=== PATIENT | male | born 1995 | race Two or more races ===

== ENCOUNTER 2018-09-10 23:42 | Emergency (ER) | payer OTHER ==
[~2018-09-10] VITALS: Ht 182.9 cm; Wt 79.4 kg
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
--- NOTE | 2018-09-10 23:59 | NUR ---
XRAY IN PROGRESS AT THE BEDSIDE.
[2018-09-11] MEDS ORDERED: VANCOMYCIN 1 GM in IV D5W 250 ML IV ONE ×2
[2018-09-11] MEDS ORDERED: IV NS 0.9% 1,000 ML BAG IV ONE
[2018-09-11] MEDS ORDERED: PIPERACILLIN /TAZOBACTAM 3.375 G in IV D5W 50 ML IV ONE ×2
--- NOTE | 2018-09-11 00:04 | NUR ---
IV START IN PROGRESS. POTTERY DECORATION DESIGNER IS AT THE BEDSIDE FOR LAB COLLECTION.
[2018-09-11] MEDS ORDERED: PIPERACILLIN /TAZOBACTAM 3.375 G VIAL IV ONE (00:08)
[2018-09-11] MEDS ORDERED: VANCOMYCIN 1 GM VIAL ONE (00:08)
[2018-09-11 00:18] LABS: BASOPHILS % (AUTO) 0.2 % (0.0-2.0); EOSINOPHILS % (AUTO) 0.3 % (0.0-6.0); HEMATOCRIT 39 % (39-51); HEMOGLOBIN 12.9 g/dL (13.5-17.5); LYMPHOCYTES # (AUTO) 1.3 /CMM (0.8-4.8); LYMPHOCYTES % (AUTO) 11.5 % (20.0-44.0); MEAN CORPUSCULAR HGB CONC 33 g/dl (31.0-36.0); MEAN CORPUSCULAR VOLUME 85 fL (80-96); MONOCYTES # (AUTO) 0.8 /CMM (0.1-1.30); NEUTROPHILS # (AUTO) 9.5 /CMM (1.8-8.9); PLATELET COUNT (AUTO) 242 /CMM (150-450); RED BLOOD CELL COUNT(AUTO) 4.63 MIL/uL (4.5-6.0); WHITE BLOOD COUNT (AUTO) 11.7 K/uL (4.3-11.0)
[2018-09-11 00:20] LABS: APPEARANCE,URINE Clear (CLEAR); BILIRUBIN,URINE SMALL (NEGATIVE); BLOOD, URINE Negative Ery/uL (NEGATIVE); COLOR,URINE Yellow (YELLOW); KETONES,URINE Negative (NEGATIVE); LEUKOCYTE ESTERASE ,URINE Negative (NEGATIVE); NITRITE, URINE Negative (NEGATIVE); PROTEIN,URINE 30 mg/dl (NEGATIVE); UGLUCOSE Negative (NEGATIVE)
[2018-09-11 00:32] LABS: CALCIUM, SERUM 9.1 mg/dL (8.5-10.1); CARBON DIOXIDE 27 mmol/L (21-32); CHLORIDE 99 mmol/L (98-107); CREATININE 0.8 mg/dL (0.6-1.3); GLUCOSE 121 mg/dL (74-106); POTASSIUM 3.7 mmol/L (3.5-5.1); SODIUM SERUM 134 mmol/L (136-145); UREA NITROGEN, BLOOD 14 mg/dL (7-18)
--- NOTE | 2018-09-11 00:35 | NUR ---
CALLED MARY BETH RE: XRAYS. THEY ARE BEING READ NOW.
--- NOTE | 2018-09-11 00:42 | NUR ---
PT REC'D AN EGG SANDWICH, PUDDING, JELLO, AND SEVERAL JUICES. PT IS TOLERATING PO WELL.
[2018-09-11 00:43] VITALS: BP 141/70
[2018-09-11 00:50] LABS: ALANINE AMINOTRANSFERASE 35 U/L (12-78); ALBUMIN 3.4 g/dL (3.4-5.0); ALKALINE PHOSPHATASE 82 U/L (46-116); ASPARTATE AMINOTRANSFERASE 28 U/L (15-37); BILIRUBIN,DIRECT 0.2 mg/dL (0.0-0.2); BILIRUBIN,TOTAL 0.7 mg/dL (0.2-1.0); TOTAL PROTEIN, SERUM 7.6 g/dL (6.4-8.2)
[2018-09-11 00:52] LABS: BACTERIA,URINE Rare /HPF (None Seen); MUCUS,URINE Few /LPF (None Seen); RBC,URINE 0-2 /HPF (0-2); SQUAMOUS EPITHELIAL CELL,UR Rare /HPF (None Seen); WBC,URINE 0-2 /HPF (0-3)
[2018-09-11] MEDS ORDERED: TDAP [DIPH/PERTUSSIS/TET] 0.5 ML VIAL IM ONE ×2 (01:00→01:14)
[2018-09-11] MEDS ORDERED: IV NS 0.9% 1,000 ML IV PRN (01:01)
--- NOTE | 2018-09-11 01:05 | NUR ---
REPORT GIVEN TO BUCKY RENNER
[2018-09-11] MEDS ORDERED: CEFTRIAXONE 1 G in IV D5W 50 ML IV SCH (01:30)
[2018-09-11] MEDS ORDERED: HYDROCODONE/APAP 5/325MG 1 EACH TABLET PO PRN (01:30)
[2018-09-11] MEDS ORDERED: ZOLPIDEM TARTRATE 5 MG TABLET PO PRN (01:30)
[2018-09-11] MEDS ORDERED: MORPHINE SULFATE INJ 2 MG/ML DISP.SYRIN IV PRN (01:30)
[2018-09-11] MEDS ORDERED: MAGNESIUM HYDROXIDE 30 ML UDC PO PRN (01:30)
[2018-09-11] MEDS ORDERED: ACETAMINOPHEN 325 MG TABLET PO PRN (01:30)
[2018-09-11] MEDS ORDERED: ONDANSETRON HCL/PF 4 MG/2 ML VIAL IVP PRN (01:30)
[2018-09-11] MEDS ORDERED: VANCOMYCIN 1 GM in IV D5W 250 ML IV SCH (01:30)
[2018-09-11] MEDS ORDERED: MAG HYDROX/AL HYDROX/SIMETH 30 ML UDC PO PRN (01:30)
[2018-09-11] MEDS ORDERED: Z GUARD REMEDY 2 OZ OINT TP PRN (01:30)
--- NOTE | 2018-09-11 01:30 | NUR ---
PT PULLED OUT HIS IV AND STATED THAT HE WANTED TO LEAVE AMA. Patient does not wish to proceed with medical care recommended by Dr. GRADY. Patient given information related to possible complications, up to and including , which could occur as a result of leaving the hospital at this time. Patient verbalizes understanding of risks involved due to leaving against medical advice. Patient has signed AMA form.
--- NOTE | 2018-09-11 01:34 | NUR ---
PT REFUSED TO SIGN HOMELESS WAIVER. PT REFUSED ANY HOMELESS RESOURCES. HE STATED THAT HE JUST WANTED TO LEAVE.
== END 2018-09-11 01:34 | disposition left against medical advice (07) ==
LOC: ER 23:45
DX: L03.114 Cellulitis of left upper limb (principal); S50.812A Abrasion of left forearm, initial encounter; F15.90 Other stimulant use, unspecified, uncomplicated; W26.8XXA Contact with other sharp object(s), not elsewhere classified, initial encounter; Y93.89 Activity, other specified; Y92.89 Other specified places as the place of occurrence of the external cause; Y99.8 Other external cause status
CPT/HCPCS: 36415; 71045; 73090; 80048; 80076; 80305; 81001; 83605; 84484; 85025; 85730; 87040 ×2; 87070; 87077; 87081; 90471; 90715; 96365; 96375; 99284; A4606; J2543; J3370; J7030; 81000-TC; J0696; J7060

== ENCOUNTER 2019-08-01 04:02 | Emergency (ER) | payer OTHER ==
[~2019-08-01] VITALS: Ht 182.9 cm; Wt 79.4 kg
[2019-08-01 04:02] VITALS: BP 159/88
== END 2019-08-01 05:55 | disposition home or self-care (01) ==
LOC: ER 04:08
DX: Z53.21 Procedure and treatment not carried out due to patient leaving prior to being seen by health care provider (principal); F41.9 Anxiety disorder, unspecified; F15.90 Other stimulant use, unspecified, uncomplicated

== ENCOUNTER 2021-01-07 20:16 | Emergency (ER) | payer OTHER ==
[~2021-01-07] VITALS: Ht 182.9 cm; Wt 79.4 kg
[2021-01-07 20:16] VITALS: BP 135/56
[2021-01-07] MEDS ORDERED: OLANZAPINE 5 MG TABLET ONE (20:40)
[2021-01-07] MEDS ORDERED: OLANZAPINE 5 MG TABLET PO ONE (21:00)
--- NOTE | 2021-01-07 21:00 | NUR ---
PT REFUSING EKG. ER AWARE.
== END 2021-01-07 21:41 | disposition home or self-care (01) ==
LOC: ER 20:17
DX: F19.10 Other psychoactive substance abuse, uncomplicated (principal); F41.9 Anxiety disorder, unspecified

== ENCOUNTER 2021-02-08 10:04 | Emergency (ER) | payer OTHER ==
[~2021-02-08] VITALS: Ht 182.9 cm; Wt 90.7 kg
[2021-02-08 10:14] VITALS: BP 145/81
--- NOTE | 2021-02-08 10:18 | NUR ---
REQUESTING DRESSING CHANGE TO [facility]. RATES PAIN 2/10. WILL CONTINUE TO MONITOR THE PATIENT.
--- NOTE | 2021-02-08 11:01 | NUR ---
Patient discharged to home in stable condition. Written and verbal after care instructions given. Patient verbalizes understanding of instruction.
== END 2021-02-08 11:01 | disposition home or self-care (01) ==
LOC: ER 10:15
DX: Z48.01 Encounter for change or removal of surgical wound dressing (principal)

== ENCOUNTER 2021-04-05 03:47 | Emergency (ER) | payer OTHER ==
[~2021-04-05] VITALS: Ht 172.7 cm; Wt 75.7 kg
[2021-04-05 03:50] VITALS: BP 132/82
== END 2021-04-05 04:51 | disposition home or self-care (01) ==
LOC: ER 04:43
DX: Z00.8 Encounter for other general examination (principal); Z59.00 Homelessness unspecified

== ENCOUNTER 2021-09-13 03:51 | Emergency (ER) | payer OTHER ==
[~2021-09-13] VITALS: Ht 182.9 cm; Wt 81.6 kg
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
--- NOTE | 2021-09-13 04:20 | NUR ---
XRAY AT BEDSIDE
[2021-09-13] MEDS ORDERED: HYDR-3972 PO (04:58)
[2021-09-13] MEDS ORDERED: HYDROCODONE/APAP 5/325MG TABLET PO ONE (05:00)
[2021-09-13] MEDS ORDERED: HYDROCODONE/APAP 5/325MG TABLET ONE (05:04)
--- NOTE | 2021-09-13 05:09 | NUR ---
Patient discharged to home in stable condition. Written and verbal after care instructions given. Patient verbalizes understanding of instruction. splint applied to left arm.
[2021-09-13 05:10] VITALS: BP 128/70
== END 2021-09-13 05:09 | disposition home or self-care (01) ==
LOC: ER 03:59
DX: S52.502A Unspecified fracture of the lower end of left radius, initial encounter for closed fracture (principal); Z59.00 Homelessness unspecified; V00.131A Fall from skateboard, initial encounter; Y93.51 Activity, roller skating (inline) and skateboarding; Y92.331 Roller skating rink as the place of occurrence of the external cause; Y99.8 Other external cause status
CPT/HCPCS: 73090-TC

== ENCOUNTER 2021-12-04 18:37 | Emergency (ER) | payer OTHER ==
[~2021-12-04] VITALS: Ht 182.9 cm; Wt 59.9 kg
[~2021-12-04 18:37] MED LIST: HYDR-3972 PO
--- NOTE | 2021-12-04 18:45 | NUR ---
BIBS FOR TACHYCARDIA 115BEAT/MIN AND C/O LEFT CALF PAIN 5/10 AFTER USING A SCOOTER. USED METH TODAY AM. PT ATTACHED TO MONITOR. DR KAMARA AT BEDSIDE FOR EVAL.
--- NOTE | 2021-12-04 19:10 | NUR ---
URINE COLLECTED AND SENT TO THE LAB
[2021-12-04] MEDS ORDERED: LORAZEPAM 1 MG TABLET ONE (19:47)
[2021-12-04] MEDS ORDERED: diphenhydrAMINE HCL 50 MG CAPSULE ONE (19:47)
--- NOTE | 2021-12-04 19:49 | NUR ---
EMPLOYEE DEVELOPMENT MANAGER AT PT'S BEDSIDE
[2021-12-04] MEDS: IV NS 0.9% 1,000 ML BAG IV ONE (19:50)
[2021-12-04 19:52] LABS: BILIRUBIN,URINE NEGATIVE (NEGATIVE); COLOR,URINE YELLOW (YELLOW); LEUKOCYTE ESTERASE ,URINE NEGATIVE (NEGATIVE); NITRITE, URINE NEGATIVE (NEGATIVE); PROTEIN,URINE NEGATIVE (NEGATIVE); UGLUCOSE NEGATIVE (NEGATIVE); UROBILINOGEN,URINE 0.2 EU/dL (0.2)
[2021-12-04] MEDS: LORAZEPAM 1 MG TABLET PO ONE (19:52)
[2021-12-04] MEDS: diphenhydrAMINE HCL 50 MG CAPSULE PO ONE (19:52)
[2021-12-04 20:02] LABS: BASOPHILS % (AUTO) 0.4 % (0.0-2.0); EOSINOPHILS % (AUTO) 0.6 % (0.0-6.0); HEMATOCRIT 42 % (39-51); LYMPHOCYTES # (AUTO) 1.9 K/uL (0.8-4.8); LYMPHOCYTES % (AUTO) 35.4 % (20.0-44.0); MEAN CORPUSCULAR HGB CONC 33 g/dl (31.0-36.0); MEAN CORPUSCULAR VOLUME 84 fL (80-96); MONOCYTES # (AUTO) 0.4 K/uL (0.1-1.30); MONOCYTES % (AUTO) 7.6 % (2.0-12.0); PLATELET COUNT (AUTO) 229 K/uL (150-450); RED BLOOD CELL COUNT(AUTO) 4.98 MIL/uL (4.5-6.0); WHITE BLOOD COUNT (AUTO) 5.5 K/uL (4.3-11.0)
[2021-12-04 20:28] LABS: BACTERIA,URINE Rare /HPF (None Seen); RBC,URINE 0-2 /HPF (0-2); SQUAMOUS EPITHELIAL CELL,UR Rare /HPF (None Seen); WBC,URINE 0-2 /HPF (0-3)
[2021-12-04 21:15] LABS: ALBUMIN 4.4 g/dL (3.4-5.0); BILIRUBIN,DIRECT 0.1 mg/dL (0.0-0.2); BILIRUBIN,TOTAL 0.6 mg/dL (0.2-1.0); TOTAL PROTEIN, SERUM 8.3 g/dL (6.4-8.2)
[2021-12-04 21:17] LABS: CALCIUM, SERUM 9.6 mg/dL (8.5-10.1); CARBON DIOXIDE 28 mmol/L (21-32); CHLORIDE 102 mmol/L (98-107); CREATININE 0.9 mg/dL (0.6-1.3); GLUCOSE 95 mg/dL (74-106); POTASSIUM 4.1 mmol/L (3.5-5.1); SODIUM SERUM 141 mmol/L (136-145); UREA NITROGEN, BLOOD 27 mg/dL (7-18)
--- NOTE | 2021-12-04 22:03 | NUR ---
2ND TROP SENT
--- NOTE | 2021-12-05 05:40 | NUR ---
Patient discharged to home in stable condition. Written and verbal after care instructions given. Patient verbalizes understanding of instruction. IV removed. Catheter intact and site benign. Pressure and 4x4 applied to site. No bleeding noted.
[2021-12-05 05:41] VITALS: BP 129/60
== END 2021-12-05 06:09 | disposition home or self-care (01) ==
LOC: ER 18:40
DX: F24 Shared psychotic disorder (principal); E86.0 Dehydration; R79.89 Other specified abnormal findings of blood chemistry; I45.10 Unspecified right bundle-branch block; I44.5 Left posterior fascicular block; Z59.00 Homelessness unspecified; Z79.899 Other long term (current) drug therapy
CPT/HCPCS: 36415; 71045; 80048; 80076; 81001; 82550; 84484 ×2; 85025; 93005 ×2; 96360; 99285; J7030; Q0163

== ENCOUNTER 2021-12-14 19:28 | Emergency (ER) | payer OTHER ==
[~2021-12-14] VITALS: Ht 167.6 cm; Wt 72.6 kg
[2021-12-14 19:28] VITALS: BP 152/69
--- NOTE | 2021-12-14 20:00 | NUR ---
CALLED TO ROOM, NO RESPONSE.
--- NOTE | 2021-12-14 20:12 | NUR ---
CALLED TO ROOM, NO RESPONSE.
--- NOTE | 2021-12-14 20:20 | NUR ---
CALLED TO ROOM, NO RESPONSE.
== END 2021-12-15 01:43 | disposition left against medical advice (07) ==
LOC: ER 19:34
DX: Z53.21 Procedure and treatment not carried out due to patient leaving prior to being seen by health care provider (principal)

== ENCOUNTER 2021-12-17 08:03 | Emergency (ER) | payer OTHER ==
[~2021-12-17] VITALS: Ht 182.9 cm; Wt 77.1 kg
--- NOTE | 2021-12-17 08:12 | NUR ---
BIB RA 839 FROM A CLINIC,C/O ANXIETY AFTER USING METH 4 HRS AGO. PT ATTACHED TO MONITOR, NO RESP DISTRESS NOTED.
[2021-12-17] MEDS ORDERED: LORAZEPAM 1 MG TABLET PO ONE (08:30)
[2021-12-17] MEDS ORDERED: LORAZEPAM 1 MG TABLET ONE (08:39)
[2021-12-17 08:42] LABS: BILIRUBIN,URINE NEGATIVE (NEGATIVE); COLOR,URINE YELLOW (YELLOW); LEUKOCYTE ESTERASE ,URINE NEGATIVE (NEGATIVE); NITRITE, URINE NEGATIVE (NEGATIVE); PROTEIN,URINE NEGATIVE (NEGATIVE); UGLUCOSE NEGATIVE (NEGATIVE); UROBILINOGEN,URINE 0.2 EU/dL (0.2)
[2021-12-17 08:45] LABS: BASOPHILS % (AUTO) 0.3 % (0.0-2.0); EOSINOPHILS % (AUTO) 0.2 % (0.0-6.0); HEMATOCRIT 42 % (39-51); HEMOGLOBIN 13.8 g/dL (13.5-17.5); LYMPHOCYTES # (AUTO) 1.6 K/uL (0.8-4.8); LYMPHOCYTES % (AUTO) 22.4 % (20.0-44.0); MEAN CORPUSCULAR HGB CONC 33 g/dl (31.0-36.0); MEAN CORPUSCULAR VOLUME 85 fL (80-96); MONOCYTES # (AUTO) 0.4 K/uL (0.1-1.30); MONOCYTES % (AUTO) 6.3 % (2.0-12.0); NEUTROPHILS % (AUTO) 70.8 % (43.0-81.0); PLATELET COUNT (AUTO) 218 K/uL (150-450); RED BLOOD CELL COUNT(AUTO) 4.93 MIL/uL (4.5-6.0)
[2021-12-17 09:27] LABS: CALCIUM, SERUM 9.6 mg/dL (8.5-10.1); CARBON DIOXIDE 27 mmol/L (21-32); CHLORIDE 104 mmol/L (98-107); CREATININE 0.9 mg/dL (0.6-1.3); GLUCOSE 103 mg/dL (74-106); POTASSIUM 3.7 mmol/L (3.5-5.1); SODIUM SERUM 141 mmol/L (136-145); UREA NITROGEN, BLOOD 22 mg/dL (7-18)
[2021-12-17] MEDS ORDERED: LORAZEPAM INJ 2 MG/ML VIAL ONE (09:57)
[2021-12-17] MEDS ORDERED: LORAZEPAM INJ 2 MG/ML VIAL IM ONE (10:00)
[2021-12-17 10:07] LABS: ALANINE AMINOTRANSFERASE 28 U/L (12-78); ALBUMIN 4.4 g/dL (3.4-5.0); ALKALINE PHOSPHATASE 89 U/L (46-116); ASPARTATE AMINOTRANSFERASE 24 U/L (15-37); BILIRUBIN,DIRECT 0.1 mg/dL (0.0-0.2); BILIRUBIN,TOTAL 0.3 mg/dL (0.2-1.0); TOTAL PROTEIN, SERUM 8.2 g/dL (6.4-8.2)
[2021-12-17 10:10] LABS: ACETAMINOPHEN < 10 ug/ml (10-30); ALCOHOL, BLOOD < 3 mg/dL (0-0)
[2021-12-17 10:48] VITALS: BP 126/73
--- NOTE | 2021-12-17 14:09 | NUR ---
"SS Note: Pt. Is a 26-year-old male who demonstrates adequate insight to the reason for hospitalization. Per EMR, pt. presents to the ER with altered mental status and was using methamphetamine. Pt. was oriented x3, alert, and cooperative. During interview, pt. was capable of following directions and appeared unkempt. Pt.s speech was at a normal rate and pt.s mood was elevated. Pt. reported no hx of mental health, denies suicidal ideation and homicidal ideation. Pt. denies auditory hallucinations, visual hallucinations, paranoia, or delusions. SW explored pt.s living situation. Per pt., he is homeless. Pt. stated that he has been doing Methamphetamine for years. He had recently injected too much and came to the hospital. Per pt., he has been to rehab before ([facility]) in [place] a couple years ago. Pt. stated that it did not help. SW offered rehab resources; pt. accepted. Pt. stated that he wants to go to a fdc. SW provided pt. with information and directions to [place] of the [facility] ([address] [place] [address]) for an intake. Pt. requested a TAP card, SW provided pt. with one. Pt. was able to sign homeless waiver, and its placed in chart. Resources Provided: Year-round shelters: [place] [facility] [address] [place], [place] [id number] ; [facility] [place] [address] [place] [address]; [facility] Ahsjveb5718 [facility] [address] Winter Shelters: Drea Wong Provider: [facility] [place] Address: [address] [facility] [place], [address] # of Beds: 47 Population Served: [facility] [place] [facility] 6 | [facility] Maddi Perrin Judith Provider: [facility] Address: [address], [address] # of Beds: 66 Population Served: Hanane Wong Provider: First to Serve Address: [address] [facility], [address] # of Beds: 56 Population Served: [place] Marlo [place] Provider: /[facility] Address: [address] [facility], [address] # of Beds: 49 Population Served: [facility] SPA 8 | [place] Ginger Blue Provider: First to Serve Address: [address], [address] # of Beds: 37 Population Served: Coed Hygiene: [place] [facility]: [address] [place] ; [place] [facility] [address] [facility] ; [facility] [address] [facility] [place] . Food Resources: [place] [facility] at [facility]- [address] [facility]; Meet Each Need with Dignity ([facility]) [address] [facility] [place]; [facility] [address] [facility]; [facility] [address] [facility]. Mental Health resources provided: [facility] [address] [place], [place] [phone] ; [facility] [place] [address] [facility] [address], [place], [place] [phone] ; Portia Rojas [facility] [address] [place] [address] ; [facility] [address] [place], [place] [phone] Healthcare Clinics: [facility] [address] [facility], [address] [place]. [place] ; [facility] [address] [place] [address]; [facility] [address] [facility] [place] [phone]) [phone] Counseling--Outpatient [facility] [address], [address] [place], [place] [address] (Specializes in in-depth psychotherapy for emotional distress: anxiety, depression, interpersonal conflicts, life transitions, childhood abuse) [facility] [address] [place] [address] (Assist with solving problem marital difficulties, separation & divorce, aging parents, & grief, chronic & terminal illness) [facility] [address] [place] [address] (Deal with loss & grief, anxiety, marital difficulties) Homebound/Mental Health Services [address] [facility] [address] [place] [address] (Provide in-home mental services to people who are incapable of leaving their homes) Organization for Needs of the Elderly Senior Service/Resource Center [address] [place] [address] [facility] [address] [place] [address] PSYCHIATRIC OUTPATIENT SERVICES [facility] Partial Hospitalization and Intensive Outpatient Program (Managed Care and [place] Only)[address] [facility] [phone] [facility] Partial Hospitalization and Outpatient [id number] [facility]. [address] [place], [place] [phone] [facility] [place] [id number] [facility] [address] [place], [place] [phone] [facility] Partial Hospitalization and Outpatient [id number] [place], [phone] Substance Abuse resources provided included: [facility] Substance Abuse Self-Helpline ([facility]) ; CRI [facility]LP [address] [facility]. [place] [address] ; [facility] [address] [facility] [address] ; [facility] Rehabilitation Program [address] [facility] [place] [address] ; [facility] [address] [facility] [phone] ; [facility] [address] Toby [address] [facility] [address] ; [facility] Emergency Department [address] [facility]. [facility] [phone] ; [facility] Substance Abuse Helpline([facility] ; [facility] Family Counseling ; [facility] [place]; [facility]; C[facility]Help [place]; [facility] Toby Torres; [facility] [place]; [place]; [facility] Circle; [facility], [facility]. [place]; Alcoholics Anonymous -SFV; Quynh ; Marijuana Anonymous -SFV; Narcotics Anonymous www.na.org;"
== END 2021-12-17 10:48 | disposition home or self-care (01) ==
LOC: ER 08:03
DX: F15.959 Other stimulant use, unspecified with stimulant-induced psychotic disorder, unspecified (principal); Z60.2 Problems related to living alone; Z79.899 Other long term (current) drug therapy
CPT/HCPCS: 99284; 96372; 71045; 85025; 80048; 80076; 81003; 36415; 84484; 80143; 80320; 80307; J2060; G0480

== ENCOUNTER 2021-12-24 03:33 | Emergency (ER) | payer OTHER ==
[~2021-12-24] VITALS: Ht 170.2 cm; Wt 74.8 kg
[2021-12-24 03:48] VITALS: BP 133/72
[2021-12-24] MEDS ORDERED: MAGNESIUM CITRATE 296 ML BOTTLE PO ONE (04:00)
[2021-12-24] MEDS ORDERED: LORAZEPAM 1 MG TABLET PO ONE (04:00)
[2021-12-24] MEDS ORDERED: POLY17PO4 PO (04:03)
[2021-12-24] MEDS ORDERED: DOCU-141 PO (04:03)
[2021-12-24] MEDS ORDERED: MAGNESIUM CITRATE 296 ML BOTTLE ONE (04:05)
[2021-12-24] MEDS ORDERED: LORAZEPAM 1 MG TABLET ONE (04:05)
== END 2021-12-24 04:18 | disposition home or self-care (01) ==
LOC: ER 03:35
DX: K59.00 Constipation, unspecified (principal); Z93.0 Tracheostomy status; Z60.2 Problems related to living alone; Z79.899 Other long term (current) drug therapy

== ENCOUNTER 2022-01-18 18:09 | Emergency (ER) | payer OTHER ==
[~2022-01-18] VITALS: Ht 170.2 cm; Wt 74.8 kg
[~2022-01-18 18:09] MED LIST changes: +DOCU-141 PO; +POLY17PO4 PO
--- NOTE | 2022-01-18 18:42 | NUR ---
pt [id number] from a clinic c/o chest pain, palpitaion s/p taking methampetamine. pt is tachycardic airplane captain. anxious, placed on monitor. awaiting md galloway.
--- NOTE | 2022-01-18 18:49 | NUR ---
benja carreon at bedside for eval.
[2022-01-18] MEDS ORDERED: OLANZAPINE 5 MG TABLET ONE (18:54)
[2022-01-18] MEDS ORDERED: ASPIRIN 81 MG TAB.CHEW ONE (18:54)
[2022-01-18] MEDS ORDERED: OLANZAPINE 5 MG TABLET PO ONE (19:00)
[2022-01-18] MEDS ORDERED: ASPIRIN 81 MG TAB.CHEW PO ONE (19:00)
[2022-01-18] MEDS ORDERED: IV NS 0.9% 1,000 ML BAG IV ONE (19:00)
[2022-01-18] MEDS ORDERED: LORAZEPAM INJ 2 MG/ML VIAL ONE (19:18)
[2022-01-18] MEDS ORDERED: ZIPRASIDONE 20 MG CAPSULE PO STA (19:24)
[2022-01-18] MEDS ORDERED: LORAZEPAM INJ 2 MG/ML VIAL IV ONE (19:30)
--- NOTE | 2022-01-18 19:32 | NUR ---
RECEIVED REPORT FROM TATE LAWLER FOR MILA
[2022-01-18] MEDS ORDERED: ZIPRASIDONE MESYLATE 20 MG/VIAL VIAL IM ONE ×2 (19:38→20:00)
[2022-01-18] MEDS ORDERED: WATER FOR INJECTION,STERILE 10 ML ONE (19:40)
--- NOTE | 2022-01-18 19:41 | NUR ---
PT IS RESTING COMFORTABLY IN BED, PT IS ALERT AND ORIENTED. DENIES ANY PAIN AT THIS TIME. WILL CONTINUE TO MONITOR.
[2022-01-18 19:50] LABS: BASOPHILS % (AUTO) 0.1 % (0.0-2.0); HEMATOCRIT 42 % (39-51); HEMOGLOBIN 14.1 g/dL (13.5-17.5); LYMPHOCYTES # (AUTO) 1.2 K/uL (0.8-4.8); LYMPHOCYTES % (AUTO) 15.5 % (20.0-44.0); MEAN CORPUSCULAR HGB CONC 33 g/dl (31.0-36.0); MEAN CORPUSCULAR VOLUME 84 fL (80-96); MONOCYTES # (AUTO) 0.4 K/uL (0.1-1.30); MONOCYTES % (AUTO) 5.7 % (2.0-12.0); NEUTROPHILS # (AUTO) 5.9 K/uL (1.8-8.9); NEUTROPHILS % (AUTO) 78.7 % (43.0-81.0); PLATELET COUNT (AUTO) 208 K/uL (150-450); WHITE BLOOD COUNT (AUTO) 7.4 K/uL (4.3-11.0)
--- NOTE | 2022-01-18 20:15 | NUR ---
IV removed. Catheter intact and site benign. Pressure and 4x4 applied to site. No bleeding noted. Pt ambulatory with a steady gait
--- NOTE | 2022-01-18 20:19 | NUR ---
Patient does not wish to proceed with medical care recommended by Gemma Everett PA. Patient given information related to possible complications, up to and including , which could occur as a result of leaving the hospital at this time. Patient verbalizes understanding of risks involved due to leaving against medical advice. Patient has signed AMA form.
[2022-01-18 20:23] VITALS: BP 169/103
[2022-01-18 20:29] LABS: CALCIUM, SERUM 9.4 mg/dL (8.5-10.1); CARBON DIOXIDE 26 mmol/L (21-32); CHLORIDE 103 mmol/L (98-107); GLUCOSE 122 mg/dL (74-106); POTASSIUM 4.5 mmol/L (3.5-5.1); SODIUM SERUM 141 mmol/L (136-145); UREA NITROGEN, BLOOD 19 mg/dL (7-18)
== END 2022-01-18 20:23 | disposition left against medical advice (07) ==
LOC: ER 18:11
DX: R07.89 Other chest pain (principal); F15.90 Other stimulant use, unspecified, uncomplicated; F24 Shared psychotic disorder; I44.5 Left posterior fascicular block; I45.10 Unspecified right bundle-branch block; F17.200 Nicotine dependence, unspecified, uncomplicated; Z59.00 Homelessness unspecified; Z98.890 Other specified postprocedural states; Z60.2 Problems related to living alone; Z79.899 Other long term (current) drug therapy
CPT/HCPCS: 99285; 96374; 71045; 96361; 99406; 93005; 85025; 80048; 36415; 84484; 96372; J2060; J7030; J3486

== ENCOUNTER 2022-01-19 02:39 | Emergency (ER) | payer OTHER ==
[~2022-01-19] VITALS: Ht 182.9 cm; Wt 72.6 kg
[2022-01-19 03:21] VITALS: BP 141/90
--- NOTE | 2022-01-19 03:29 | NUR ---
Patient discharged to home in stable condition. Written and verbal after care instructions given. Patient verbalizes understanding of instruction.
== END 2022-01-19 03:29 | disposition home or self-care (01) ==
LOC: ER 02:41
DX: F15.10 Other stimulant abuse, uncomplicated (principal); Z76.5 Malingerer [conscious simulation]; Z59.00 Homelessness unspecified; F17.200 Nicotine dependence, unspecified, uncomplicated; Z98.890 Other specified postprocedural states; Z60.2 Problems related to living alone; Z79.899 Other long term (current) drug therapy

== ENCOUNTER 2022-02-01 04:06 | Emergency (ER) | payer OTHER ==
[~2022-02-01] VITALS: Ht 177.8 cm; Wt 59.0 kg
--- NOTE | 2022-02-01 04:20 | NUR ---
OTTONIEL 37 REQUESTING FOR VOLUNTARY PSYCH ADMIT. S/I WITH NO PLAN. PT A/OX3. TOLERATING R/A WELL WITH NO SOB. PT CHANGED IN GOWN, BELONGINGS COLLECTED AND PLACED IN LOCKER. SECURITY AT PT'S BEDSIDE FOR WANDING. SAFETY MEASURES IN PLACE. Addendum: 02/01/22 at 0444 by RADHA OTTONIEL 39 FROM THE [facility] REQUESTING FOR VOLUNTARY PSYCH ADMIT. S/I WITH NO PLAN. PT A/OX3. TOLERATING R/A WELL WITH NO SOB. PT CHANGED IN GOWN, BELONGINGS COLLECTED AND PLACED IN LOCKER. SECURITY AT PT'S BEDSIDE FOR WANDING. SAFETY MEASURES IN PLACE.
--- NOTE | 2022-02-01 04:29 | NUR ---
URINE COLLECTED AND SENT TO LAB
--- NOTE | 2022-02-01 04:29 | NUR ---
COVID ANTIGEN SWAB COLLECTED AND SENT TO LAB
--- NOTE | 2022-02-01 04:31 | NUR ---
DIRECTOR OF ONLINE MERCHANDISING AT PT'S BEDSIDE
[2022-02-01 04:49] LABS: BASOPHILS % (AUTO) 0.3 % (0.0-2.0); EOSINOPHILS % (AUTO) 0.1 % (0.0-6.0); HEMATOCRIT 43 % (39-51); HEMOGLOBIN 14.2 g/dL (13.5-17.5); LYMPHOCYTES # (AUTO) 1.8 K/uL (0.8-4.8); LYMPHOCYTES % (AUTO) 25.7 % (20.0-44.0); MEAN CORPUSCULAR HGB CONC 33 g/dl (31.0-36.0); MEAN CORPUSCULAR VOLUME 84 fL (80-96); MONOCYTES # (AUTO) 0.5 K/uL (0.1-1.30); MONOCYTES % (AUTO) 7.1 % (2.0-12.0); NEUTROPHILS # (AUTO) 4.6 K/uL (1.8-8.9); NEUTROPHILS % (AUTO) 66.8 % (43.0-81.0); PLATELET COUNT (AUTO) 224 K/uL (150-450); RED BLOOD CELL COUNT(AUTO) 5.08 MIL/uL (4.5-6.0); WHITE BLOOD COUNT (AUTO) 6.9 K/uL (4.3-11.0)
[2022-02-01 05:10] LABS: ALCOHOL, BLOOD < 3 mg/dL (0-0); CALCIUM, SERUM 9.2 mg/dL (8.5-10.1); CREATININE 1.2 mg/dL (0.6-1.3); POTASSIUM 3.7 mmol/L (3.5-5.1)
[2022-02-01 05:11] LABS: ACETAMINOPHEN 0 ug/ml (10-30)
[2022-02-01 05:15] LABS: ALBUMIN 4.4 g/dL (3.4-5.0); BILIRUBIN,DIRECT 0.1 mg/dL (0.0-0.2); BILIRUBIN,TOTAL 0.3 mg/dL (0.2-1.0); TOTAL PROTEIN, SERUM 8.2 g/dL (6.4-8.2)
[2022-02-01 05:26] LABS: BILIRUBIN,URINE NEGATIVE (NEGATIVE); COLOR,URINE YELLOW (YELLOW); LEUKOCYTE ESTERASE ,URINE NEGATIVE (NEGATIVE); NITRITE, URINE NEGATIVE (NEGATIVE); PROTEIN,URINE TRACE mg/dl (NEGATIVE); UGLUCOSE NEGATIVE (NEGATIVE); UROBILINOGEN,URINE 0.2 EU/dL (0.2)
--- NOTE | 2022-02-01 09:31 | NUR ---
PT ACCEPTED TO [facility] UNDER IRIELE CALL [phone] FOR REPORT. WILL SEND COMPUTER ASSISTANT.
[2022-02-01 09:45] VITALS: BP 111/71
--- NOTE | 2022-02-01 10:02 | NUR ---
PICKED UP BY ROBERTO CARTER IN STABLE CONDITION
== END 2022-02-01 10:05 ==
LOC: ER 04:12
DX: R45.851 Suicidal ideations (principal); F15.10 Other stimulant abuse, uncomplicated; Z59.02 Unsheltered homelessness; Z20.822 Contact with and (suspected) exposure to COVID-19; F17.200 Nicotine dependence, unspecified, uncomplicated
CPT/HCPCS: 99285; 85025; 80048; 80076; 81003; 36415; 87426; 80143; 80320; 80307; C9803; G0480

== ENCOUNTER 2022-02-06 03:27 | Emergency (ER) | payer OTHER ==
[~2022-02-06] VITALS: Ht 188 cm; Wt 77.1 kg
--- NOTE | 2022-02-06 03:46 | NUR ---
TO ER BED 13. BIBS FOR C/O UPPER ABDOMINAL PAIN X 1 MONTH. + BLOOD IN STOOL. PT IS ALERT AND ORIENTED. AMBULATORY WITH STEADY GAIT. BREATHING IS EVEN AND NONLABORED. CONNECTED TO MONITOR. AWAITING MD METCALF
--- NOTE | 2022-02-06 04:01 | NUR ---
DETAIL DRAFTER AT PT'S BEDSIDE
--- NOTE | 2022-02-06 04:04 | NUR ---
20g RH. BLOOD DRAWN AND SENT TO LAB
[2022-02-06 04:16] LABS: BASOPHILS % (AUTO) 0.2 % (0.0-2.0); EOSINOPHILS % (AUTO) 0.4 % (0.0-6.0); HEMATOCRIT 41 % (39-51); HEMOGLOBIN 13.7 g/dL (13.5-17.5); LYMPHOCYTES # (AUTO) 1.2 K/uL (0.8-4.8); LYMPHOCYTES % (AUTO) 10.5 % (20.0-44.0); MEAN CORPUSCULAR HGB CONC 33 g/dl (31.0-36.0); MEAN CORPUSCULAR VOLUME 84 fL (80-96); MONOCYTES # (AUTO) 0.7 K/uL (0.1-1.30); MONOCYTES % (AUTO) 5.8 % (2.0-12.0); NEUTROPHILS # (AUTO) 9.8 K/uL (1.8-8.9); NEUTROPHILS % (AUTO) 83.1 % (43.0-81.0); PLATELET COUNT (AUTO) 170 K/uL (150-450); RED BLOOD CELL COUNT(AUTO) 4.94 MIL/uL (4.5-6.0); WHITE BLOOD COUNT (AUTO) 11.8 K/uL (4.3-11.0)
[2022-02-06 04:22] LABS: CALCIUM, SERUM 9.1 mg/dL (8.5-10.1); POTASSIUM 3.6 mmol/L (3.5-5.1)
[2022-02-06 04:28] LABS: ALBUMIN 4.2 g/dL (3.4-5.0); BILIRUBIN,DIRECT 0.1 mg/dL (0.0-0.2); BILIRUBIN,TOTAL 0.3 mg/dL (0.2-1.0); TOTAL PROTEIN, SERUM 7.9 g/dL (6.4-8.2)
--- NOTE | 2022-02-06 04:31 | NUR ---
PT TAKEN TO CT VIA JAMES
--- NOTE | 2022-02-06 07:11 | NUR ---
COVID ANTIGEN SWAB COLLECTED AND SENT TO LAB
--- NOTE | 2022-02-06 07:11 | NUR ---
URINE SAMPLE COLLECTED
--- NOTE | 2022-02-06 07:15 | NUR ---
ASSUME PT CARE, APPEARS ANXIOUS NOW STATING THAT HE FEELS SUICIDAL WITH PLAN TO OVERDOSE ON "DRUGS" DR KAMARA MADE AWARE. WILL CONTINUE TO MONITOR.
[2022-02-06 07:48] LABS: BILIRUBIN,URINE NEGATIVE (NEGATIVE); COLOR,URINE YELLOW (YELLOW); LEUKOCYTE ESTERASE ,URINE NEGATIVE (NEGATIVE); NITRITE, URINE NEGATIVE (NEGATIVE); PROTEIN,URINE 30 mg/dl (NEGATIVE); UGLUCOSE NEGATIVE (NEGATIVE); UROBILINOGEN,URINE 0.2 EU/dL (0.2)
[2022-02-06 07:52] LABS: BACTERIA,URINE None seen /HPF (None Seen); RBC,URINE 0-2 /HPF (0-2); SQUAMOUS EPITHELIAL CELL,UR Rare /HPF (None Seen); WBC,URINE 0-2 /HPF (0-3)
[2022-02-06 08:05] LABS: ALCOHOL, BLOOD < 3 mg/dL (0-0)
[2022-02-06 08:11] LABS: ACETAMINOPHEN 0 ug/ml (10-30)
[2022-02-06] MEDS ORDERED: LORAZEPAM 1 MG TABLET ONE (08:38)
[2022-02-06] MEDS ORDERED: LORAZEPAM 1 MG TABLET PO ONE (09:00)
--- NOTE | 2022-02-06 10:20 | NUR ---
PT ACCEPTED AT [facility] UNDER DR CONKLIN NUMBER FOR REPORT [phone] TRANSPORTATION WILL BE HER AT 1300
[2022-02-06 11:02] VITALS: BP 131/76
--- NOTE | 2022-02-06 15:25 | NUR ---
SO NOA ALMANZAR NURSING SUP REZA IS GIVEN REPORT
--- NOTE | 2022-02-06 15:29 | NUR ---
THE PATIENT IS TRANSFERED TO [facility] VIA ARRANGED TRANSPO
== END 2022-02-06 15:31 ==
LOC: ER 03:28
DX: R10.10 Upper abdominal pain, unspecified (principal); R45.851 Suicidal ideations; F41.9 Anxiety disorder, unspecified; Z20.822 Contact with and (suspected) exposure to COVID-19; Z98.890 Other specified postprocedural states; Z59.02 Unsheltered homelessness; F17.200 Nicotine dependence, unspecified, uncomplicated
CPT/HCPCS: 99285; 71045; 74176; 85025; 80048; 83690; 80076; 81001; 36415; 85730; 87426; 80143; 80320; 80307; C9803; G0480

== ENCOUNTER 2022-02-10 18:33 | Emergency (ER) | payer OTHER ==
[~2022-02-10] VITALS: Ht 182.9 cm; Wt 77.1 kg
--- NOTE | 2022-02-10 18:37 | NUR ---
To ER bed 10, [id number] from [facility], c/o palpitation after using meth all day, aaox3, breathing even and non labored, connected to monitor, awaiting md orders
[2022-02-10] MEDS ORDERED: LORAZEPAM INJ 2 MG/ML VIAL ONE (18:47)
[2022-02-10] MEDS ORDERED: IV NS 0.9% 1,000 ML IV ONE (19:00)
[2022-02-10] MEDS ORDERED: LORAZEPAM INJ 2 MG/ML VIAL IV ONE (19:00)
--- NOTE | 2022-02-10 19:48 | NUR ---
PT IS RESTING COMFORTABLY IN BED, ALERT AND ORIENTED. CONNECTED TO MONITOR. DENIES ANY PAIN AT THIS TIME. WILL CONTINUE TO MONITOR
--- NOTE | 2022-02-10 20:34 | NUR ---
IV removed. Catheter intact and site benign. Pressure and 4x4 applied to site. No bleeding noted.
[2022-02-10] MEDS ORDERED: QUET300T2 PO (20:38)
--- NOTE | 2022-02-10 20:43 | NUR ---
PT IS A, OX3. VERBALLY RESPONSIVE. PO INTAKE TOLERATED WELL. NO N/V. MEDICALLY STABLE FOR D/C. Patient discharged to home in stable condition. Written and verbal after care instructions given. Patient verbalizes understanding of instruction.
[2022-02-10 21:40] VITALS: BP 145/98
== END 2022-02-10 21:40 | disposition home or self-care (01) ==
LOC: ER 18:38
DX: F15.10 Other stimulant abuse, uncomplicated (principal); Z98.890 Other specified postprocedural states; Z79.899 Other long term (current) drug therapy
CPT/HCPCS: 99283; 96374; 96361; 93005; J2060; J7030

== ENCOUNTER 2022-02-15 17:19 | Emergency (ER) | payer OTHER ==
[~2022-02-15] VITALS: Ht 185.4 cm; Wt 72.6 kg
[~2022-02-15 17:19] MED LIST changes: +QUET300T2 PO
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
--- NOTE | 2022-02-15 18:00 | NUR ---
RECEVED PT 26 YRS MALE CAME BY PARJO ANN FOR PAPATION and chest pain no sob awake and alert
--- NOTE | 2022-02-15 18:20 | NUR ---
SEEN BY DR. HAGEN
[2022-02-15 18:29] LABS: BASOPHILS % (AUTO) 0.1 % (0.0-2.0); EOSINOPHILS % (AUTO) 0.1 % (0.0-6.0); HEMATOCRIT 42 % (39-51); HEMOGLOBIN 13.9 g/dL (13.5-17.5); LYMPHOCYTES % (AUTO) 14.2 % (20.0-44.0); MEAN CORPUSCULAR HGB CONC 33 g/dl (31.0-36.0); MEAN CORPUSCULAR VOLUME 84 fL (80-96); MONOCYTES # (AUTO) 0.2 K/uL (0.1-1.30); MONOCYTES % (AUTO) 3.5 % (2.0-12.0); NEUTROPHILS # (AUTO) 5.6 K/uL (1.8-8.9); NEUTROPHILS % (AUTO) 82.1 % (43.0-81.0); PLATELET COUNT (AUTO) 243 K/uL (150-450); RED BLOOD CELL COUNT(AUTO) 4.98 MIL/uL (4.5-6.0); WHITE BLOOD COUNT (AUTO) 6.9 K/uL (4.3-11.0)
--- NOTE | 2022-02-15 18:30 | NUR ---
BLOOD DROW BY LAB TACH
[2022-02-15 18:44] LABS: CALCIUM, SERUM 9.2 mg/dL (8.5-10.1); CARBON DIOXIDE 32 mmol/L (21-32); CHLORIDE 102 mmol/L (98-107); CREATININE 0.8 mg/dL (0.6-1.3); GLUCOSE 110 mg/dL (74-106); POTASSIUM 4.4 mmol/L (3.5-5.1); SODIUM SERUM 140 mmol/L (136-145); UREA NITROGEN, BLOOD 19 mg/dL (7-18)
--- NOTE | 2022-02-15 18:45 | NUR ---
URINE SAMPLE SENT TO LAB
[2022-02-15 18:51] LABS: ALANINE AMINOTRANSFERASE 39 U/L (12-78); ALBUMIN 4.4 g/dL (3.4-5.0); ALCOHOL, BLOOD < 3 mg/dL (0-0); ALKALINE PHOSPHATASE 79 U/L (46-116); ASPARTATE AMINOTRANSFERASE 21 U/L (15-37); BILIRUBIN,DIRECT 0.1 mg/dL (0.0-0.2); BILIRUBIN,TOTAL 0.3 mg/dL (0.2-1.0); TOTAL PROTEIN, SERUM 8.1 g/dL (6.4-8.2)
[2022-02-15 18:52] LABS: ACETAMINOPHEN < 10 ug/ml (10-30)
[2022-02-15 19:22] LABS: BILIRUBIN,URINE NEGATIVE (NEGATIVE); COLOR,URINE YELLOW (YELLOW); LEUKOCYTE ESTERASE ,URINE NEGATIVE (NEGATIVE); NITRITE, URINE NEGATIVE (NEGATIVE); PROTEIN,URINE NEGATIVE (NEGATIVE); UGLUCOSE NEGATIVE (NEGATIVE); UROBILINOGEN,URINE 0.2 EU/dL (0.2)
[2022-02-15] MEDS ORDERED: LORAZEPAM 1 MG TABLET PO ONE (19:30)
--- NOTE | 2022-02-15 19:40 | NUR ---
HAND OFF FREDY LAWLER
[2022-02-15] MEDS ORDERED: LORAZEPAM 1 MG TABLET ONE (19:45)
[2022-02-15 19:56] LABS: BACTERIA,URINE None seen /HPF (None Seen); MUCUS,URINE Few /LPF (None Seen); RBC,URINE 0-2 /HPF (0-2); SQUAMOUS EPITHELIAL CELL,UR 0-2 /HPF (None Seen); WBC,URINE 0-2 /HPF (0-3)
--- NOTE | 2022-02-15 20:15 | NUR ---
PATIENT NOW REQUESTING VOLUNTARY ADMISSION TO PSYCH FACILITY. BELONGINGS TAKEN AND PLACED IN BED 18
--- NOTE | 2022-02-15 20:20 | NUR ---
SWAB FOR COVID19 SENT TO LAB
--- NOTE | 2022-02-15 22:00 | NUR ---
PT VERBALIZED THAT HE IS FEELING BETTER AND NOLONGER FEELING SUICIDAL AFTER TAKING THE MEDICATION. PT DOES NO LONGER WANT TO BE ADMITTED AND WANT TO BE DISCHARGE.
--- NOTE | 2022-02-15 22:20 | NUR ---
Patient discharged to home in stable condition. Written and verbal after care instructions given. Patient verbalizes understanding of instruction. Pt ambulatory with a steady gait
[2022-02-15 22:55] VITALS: BP 130/77
== END 2022-02-15 22:18 | disposition home or self-care (01) ==
LOC: ER 17:21
DX: F15.151 Other stimulant abuse with stimulant-induced psychotic disorder with hallucinations (principal); Z59.02 Unsheltered homelessness; Z20.822 Contact with and (suspected) exposure to COVID-19
CPT/HCPCS: 99283; 85025; 80048; 80076; 81001; 36415; 87426; 80143; 80320; 80307; C9803; G0480

== ENCOUNTER 2022-03-23 08:22 | Emergency (ER) | payer OTHER ==
[~2022-03-23] VITALS: Ht 185.4 cm; Wt 77.1 kg
[2022-03-23] MEDS ORDERED: QUETIAPINE FUMARATE 100 MG TABLET PO ONE (08:25)
[2022-03-23 08:45] VITALS: BP 155/92
[2022-03-23] MEDS ORDERED: OLANZAPINE 5 MG TABLET PO ONE (09:00)
[2022-03-23] MEDS ORDERED: OLANZAPINE 5 MG TABLET ONE (09:06)
[2022-03-23 09:12] LABS: BASOPHILS % (AUTO) 0.3 % (0.0-2.0); EOSINOPHILS % (AUTO) 0.1 % (0.0-6.0); HEMATOCRIT 44 % (39-51); HEMOGLOBIN 14.7 g/dL (13.5-17.5); LYMPHOCYTES # (AUTO) 1.4 K/uL (0.8-4.8); LYMPHOCYTES % (AUTO) 21.5 % (20.0-44.0); MEAN CORPUSCULAR HGB CONC 33 g/dl (31.0-36.0); MEAN CORPUSCULAR VOLUME 85 fL (80-96); MONOCYTES # (AUTO) 0.4 K/uL (0.1-1.30); MONOCYTES % (AUTO) 5.7 % (2.0-12.0); NEUTROPHILS # (AUTO) 4.6 K/uL (1.8-8.9); NEUTROPHILS % (AUTO) 72.4 % (43.0-81.0); PLATELET COUNT (AUTO) 207 K/uL (150-450); RED BLOOD CELL COUNT(AUTO) 5.21 MIL/uL (4.5-6.0); WHITE BLOOD COUNT (AUTO) 6.4 K/uL (4.3-11.0)
--- NOTE | 2022-03-23 09:12 | NUR ---
PT STATED THAT HE HAS A BAD REACTION (SEVER MUSCLE RIGIDITY) TO HALDOL, AMBILFY, AND ZYPREXA PT IS ABLE TO TAKE THORAZINE, SEROQUEL, TRAZADONE
[2022-03-23 09:17] LABS: BILIRUBIN,URINE NEGATIVE (NEGATIVE); COLOR,URINE YELLOW (YELLOW); LEUKOCYTE ESTERASE ,URINE NEGATIVE (NEGATIVE); NITRITE, URINE NEGATIVE (NEGATIVE); PROTEIN,URINE NEGATIVE (NEGATIVE); UGLUCOSE NEGATIVE (NEGATIVE); UROBILINOGEN,URINE 0.2 EU/dL (0.2)
[2022-03-23 09:42] LABS: ALANINE AMINOTRANSFERASE 23 U/L (12-78); ALBUMIN 4.6 g/dL (3.4-5.0); ALCOHOL, BLOOD < 3 mg/dL (0-0); ALKALINE PHOSPHATASE 94 U/L (46-116); ASPARTATE AMINOTRANSFERASE 19 U/L (15-37); BILIRUBIN,DIRECT 0.2 mg/dL (0.0-0.2); BILIRUBIN,TOTAL 0.7 mg/dL (0.2-1.0); CALCIUM, SERUM 9.6 mg/dL (8.5-10.1); CARBON DIOXIDE 27 mmol/L (21-32); CHLORIDE 101 mmol/L (98-107); GLUCOSE 115 mg/dL (74-106); POTASSIUM 3.7 mmol/L (3.5-5.1); SODIUM SERUM 136 mmol/L (136-145); TOTAL PROTEIN, SERUM 8.4 g/dL (6.4-8.2); UREA NITROGEN, BLOOD 13 mg/dL (7-18)
[2022-03-23 09:48] LABS: ACETAMINOPHEN < 10 ug/ml (10-30)
[2022-03-23] MEDS ORDERED: DOCUSATE SODIUM LIQ 100 MG/10 ML UDC XX ONE (10:00)
[2022-03-23] MEDS ORDERED: DOCUSATE SODIUM 250 MG CAPSULE PO ONE (11:02)
[2022-03-23] MEDS ORDERED: DOCUSATE SODIUM LIQ 100 MG/10 ML UDC ONE (11:04)
[2022-03-23] MEDS ORDERED: QUETIAPINE FUMARATE 100 MG TABLET ONE (11:30)
[2022-03-23] MEDS ORDERED: QUETIAPINE FUMARATE 100 MG TABLET PO SCH (11:30)
--- NOTE | 2022-03-23 12:11 | NUR ---
pt is requesting to be discharged. denies si/hi. ambulatory w/ steady gait.
== END 2022-03-23 12:33 | disposition left against medical advice (07) ==
LOC: ER 08:24 → MERGE 08:24 → ER 12:33
DX: F41.9 Anxiety disorder, unspecified (principal); Z59.02 Unsheltered homelessness; Z88.8 Allergy status to other drugs, medicaments and biological substances; Z20.822 Contact with and (suspected) exposure to COVID-19
CPT/HCPCS: 99283; 85025; 80048; 80076; 81003; 36415; 87426; 80143; 80320; 80307; C9803; G0480

== ENCOUNTER 2022-05-09 17:25 | Emergency (ER) | payer OTHER ==
[~2022-05-09] VITALS: Ht 185.4 cm; Wt 77.1 kg
[2022-05-09 17:35] VITALS: BP 138/77
--- NOTE | 2022-05-09 17:40 | NUR ---
TO ER BED 15, BIB RA [address],C/O CHEST PAIN AFTER USING METH, AAOX3, BREATHING EVEN AND LABORED, CONNECTED TO MONITOR
[2022-05-09] MEDS ORDERED: LORAZEPAM 1 MG TABLET ONE (18:23)
[2022-05-09] MEDS ORDERED: ASPIRIN 325 MG TABLET ONE (18:23)
[2022-05-09] MEDS: LORAZEPAM 1 MG TABLET PO ONE (18:26)
[2022-05-09] MEDS: ASPIRIN 325 MG TABLET PO ONE (18:26)
[2022-05-09 19:01] LABS: CALCIUM, SERUM 9.4 mg/dL (8.5-10.1); CARBON DIOXIDE 31 mmol/L (21-32); CHLORIDE 103 mmol/L (98-107); GLUCOSE 107 mg/dL (74-106); SODIUM SERUM 140 mmol/L (136-145); UREA NITROGEN, BLOOD 20 mg/dL (7-18)
--- NOTE | 2022-05-09 19:56 | NUR ---
Patient does not wish to proceed with medical care recommended by Dr. Dhaliwal. Patient given information related to possible complications, up to and including , which could occur as a result of leaving the hospital at this time. Patient verbalizes understanding of risks involved due to leaving against medical advice. Patient has signed AMA form.
[2022-05-09 20:33] LABS: BASOPHILS % (AUTO) 0.2 % (0.0-2.0); EOSINOPHILS % (AUTO) 0.4 % (0.0-6.0); HEMATOCRIT 43 % (39-51); HEMOGLOBIN 14.3 g/dL (13.5-17.5); LYMPHOCYTES # (AUTO) 1.3 K/uL (0.8-4.8); LYMPHOCYTES % (AUTO) 20.9 % (20.0-44.0); MEAN CORPUSCULAR HGB CONC 33 g/dl (31.0-36.0); MEAN CORPUSCULAR VOLUME 85 fL (80-96); MONOCYTES # (AUTO) 0.4 K/uL (0.1-1.30); MONOCYTES % (AUTO) 6.5 % (2.0-12.0); NEUTROPHILS # (AUTO) 4.4 K/uL (1.8-8.9); PLATELET COUNT (AUTO) 267 K/uL (150-450); RED BLOOD CELL COUNT(AUTO) 5.11 MIL/uL (4.5-6.0)
== END 2022-05-09 20:00 | disposition left against medical advice (07) ==
LOC: ER 17:28
DX: F24 Shared psychotic disorder (principal); R07.89 Other chest pain; F17.200 Nicotine dependence, unspecified, uncomplicated; Z93.0 Tracheostomy status; Z88.8 Allergy status to other drugs, medicaments and biological substances; Z60.2 Problems related to living alone; Z79.899 Other long term (current) drug therapy
CPT/HCPCS: 36415; 71045-TC; 80048-TC; 84484-TC; 85025-TC

== ENCOUNTER 2022-06-03 06:59 | Emergency (ER) | payer OTHER ==
[~2022-06-03] VITALS: Ht 182.9 cm; Wt 77.1 kg
--- NOTE | 2022-06-03 07:22 | NUR ---
CALLED IN ED WAITING ROOM. NO RESPONSE.
[2022-06-03 07:34] VITALS: BP 135/76
[2022-06-06] MEDS ORDERED: KETOROLAC TROMETHAMINE INJ 30 MG/ML VIAL ONE (21:37)
== END 2022-06-03 08:27 | disposition home or self-care (01) ==
LOC: ER 07:01
DX: S20.212A Contusion of left front wall of thorax, initial encounter (principal); F17.200 Nicotine dependence, unspecified, uncomplicated; F19.10 Other psychoactive substance abuse, uncomplicated; Z60.2 Problems related to living alone; Z88.8 Allergy status to other drugs, medicaments and biological substances; V19.9XXA Pedal cyclist (driver) (passenger) injured in unspecified traffic accident, initial encounter; Y93.89 Activity, other specified; Y92.89 Other specified places as the place of occurrence of the external cause; Y99.8 Other external cause status
CPT/HCPCS: 71045-TC

== ENCOUNTER 2022-06-06 22:10 | Emergency (ER) | payer OTHER ==
[~2022-06-06] VITALS: Ht 177.8 cm; Wt 72.6 kg
[2022-06-06 22:27] VITALS: BP 150/90
== END 2022-06-07 01:25 | disposition home or self-care (01) ==
LOC: ER 22:21
DX: F15.10 Other stimulant abuse, uncomplicated (principal); F41.9 Anxiety disorder, unspecified; F17.200 Nicotine dependence, unspecified, uncomplicated; Z88.8 Allergy status to other drugs, medicaments and biological substances; Z60.2 Problems related to living alone; Z79.899 Other long term (current) drug therapy
CPT/HCPCS: J1885

== ENCOUNTER 2022-06-11 15:57 | Emergency (ER) | payer OTHER ==
[~2022-06-11] VITALS: Ht 185.4 cm; Wt 77.1 kg
--- NOTE | 2022-06-11 16:12 | NUR ---
TRIAGED, BACK TO WR TO WAIT FOR ER BED,NAD
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
[2022-06-11] MEDS ORDERED: LORAZEPAM 1 MG TABLET ONE (16:55)
[2022-06-11] MEDS: LORAZEPAM 1 MG TABLET PO ONE (16:58)
--- NOTE | 2022-06-11 16:58 | NUR ---
MEDICATED ORDERED. SEE EMAR.
--- NOTE | 2022-06-11 18:16 | NUR ---
Patient discharged to home in stable condition. Written and verbal after care instructions given. Patient verbalizes understanding of instruction.
[2022-06-11 18:18] VITALS: BP 135/74
== END 2022-06-11 18:19 | disposition home or self-care (01) ==
LOC: ER 16:00
DX: F15.10 Other stimulant abuse, uncomplicated (principal); F17.200 Nicotine dependence, unspecified, uncomplicated; Z60.2 Problems related to living alone; Z88.8 Allergy status to other drugs, medicaments and biological substances